=== PATIENT | male | born 1985 | race African-American/Black ===

== ENCOUNTER 2019-02-19 13:09 | Emergency (ER) | payer OTHER ==
[~2019-02-19] VITALS: Ht 180.3 cm; Wt 59.0 kg
[~2019-02-19 13:09] MED LIST: ACCUNEB SO1.25 MG/1; NEXIUM20 M1 PO
[2019-02-19] MEDS ORDERED: ULTRAM 50MG TAB50 MG PO (14:20)
[2019-02-19] MEDS ORDERED: CYCLOBENZAPRINE5 MG PO (14:20)
[2019-02-19 14:36] VITALS: BP 118/74
== END 2019-02-19 14:38 | disposition home or self-care (01) ==
LOC: ER 13:09
DX: M54.5 Low back pain (principal); G89.29 Other chronic pain; J45.909 Unspecified asthma, uncomplicated; K21.9 Gastro-esophageal reflux disease without esophagitis; Z79.899 Other long term (current) drug therapy; V49.9XXA Car occupant (driver) (passenger) injured in unspecified traffic accident, initial encounter; Y93.89 Activity, other specified; Y92.89 Other specified places as the place of occurrence of the external cause; Y99.8 Other external cause status